=== PATIENT | female | born 1985 | race Two or more races ===

== ENCOUNTER 2024-07-21 00:06 | Observation (INO) | payer MEDICAID, SELFPAY ==
[2024-07-21 00:11] VITALS: BP 138/88; PULSE 99; RESP 16; TEMP 36.7; O2SAT 99
--- NOTE | 2024-07-21 00:38 | XR_ITS ---
Examination: Ultrasound soft tissue extremity right groin Technique: Multiple high resolution grayscale sonographic images soft tissue right groin Exam date and time: July 21, 2024 0154 hrs. Indications: Painful right groin and right labia noticed beginning one week ago Findings: Palpable lump in the right groin 3.5 x 1.0 x 3.2 cm with mild peripheral vascularity, most consistent with abscess Impression: Findings most consistent with abscess in the right groin 3.5 x 1.0 x 3.2 cm, clinical correlation advised, consider follow-up CT scan pelvis post intravenous contrast as clinically warranted
--- NOTE | 2024-07-21 00:43 | EDRME_ITS ---
Rapid Medical Screening Exam RME Arrival date/time: 07/21/24 00:06 39-year-old female presents emergency department complaining of swelling and edema to right groin and vaginal area that started about 5 days ago. Patient reports seeing primary care provider and was referred to [facility] with pending visit on the reports pain has been severe and cannot wait until then. Chief Complaint: Skin/Abscess/Foreign Body Time Seen by Provider: 07/21/24 00:19 Vital signs: Vital Signs Temperature 98.1 F 07/21/24 00:11 Pulse Rate 99 07/21/24 00:11 Respiratory Rate 16 07/21/24 00:11 Blood Pressure 138/88 H 07/21/24 00:11 Pulse Oximetry (%) 99 07/21/24 00:11 Oxygen Delivery Method Room Air 07/21/24 00:11 Vital signs reviewed by provider: Yes
--- NOTE | 2024-07-21 02:00 | XR_ITS ---
Examination: Ultrasound soft tissue extremity right labia Technique: Multiple high resolution grayscale sonographic images soft tissue right labia Exam date and time: August 10, 2024 at 0206 hrs. Indications: Painful lumps in the right groin beginning one week ago Findings: Soft tissue mass with mild peripheral vascularity in the right labia 3.3 x 1.5 x 1.2 cm impression: Soft tissue mass in the right labia 3.3 x 1.5 x 2.2 cm, most consistent with abscess, clinical correlation advised and follow-up accordingly
[2024-07-21 03:05] LABS: Collection Type, Urine Clean Catch
--- NOTE | 2024-07-21 03:15 | PRELIM_ITS ---
Right lower extremity ultrasound. July 21, 2024 at 0154 hoursClinical history: Right groin absces s.No prior study is available for comparison. Findings:There is heterogeneous fluid collection in th e right groin measuring 3.5 ((CC) x 1.0 x 3.2 (TRANS) cm with mild peripheral vascularity and surroun ding soft tissue swelling. Impression:Findings suggestive of abscess in the right groin region. Recom mend clinical correlation and followup. Report Electronically Signed By: Gianni Toro 07/21/2024 3:15 :21 AM [EST]
--- NOTE | 2024-07-21 03:17 | PRELIM_ITS ---
Right lower extremity ultrasound. July 21, 2024 at 0206 hoursClinical history: Right labia minora and majora rule out abscess.No prior study is available for comparison. Findings:There is heterogene ous fluid collection in the right inner labia measuring 3.3 x 1.5 x 2.2 cm with minimal peripheral va scularity. Surrounding soft tissue swelling is seen. Impression:Findings suggestive of abscess in the right inner labia. Recommend clinical correlation and followup. Report Electronically Signed By: Matt Toro 07/21/2024 3:16:50 AM [EST]
[2024-07-21 03:24] LABS: Bilirubin,Urine Negative (Negative); Blood,Urine 3+ (Negative); Clarity,Urine Clear (Clear/Hazy); Color,Urine Yellow (Lt Yel-Yel); Culture Indicated,Urine Yes; Glucose, Urine Negative (Negative); Ketones,Urine Negative (Negative); Leukocyte Esterase,Urine Positive (Negative); Nitrite,Urine Negative (Negative); PH,Urine 6.5 (5.0-7.0); Protein,Urine Trace (Neg - Trace); RBC,Urine 88 /hpf (0-3); Specific Gravity,Urine 1.025 (1.001-1.035); Squamous Epithelial Cell,Urine 4 /hpf (0-5); WBC,Urine 33 /hpf (0-5)
--- NOTE | 2024-07-21 04:04 | EDNOTE_ITS ---
<Statement entered by Lucille Bruce MD - 07/21/24 22:04> As co-signing physician, I was present and available for consult prn. I concur with the plan and care as documented by the midlevel provider. ED Skin Abcess FB-RME/HPI General Chief complaint: Skin/Abscess/Foreign Body Stated complaint: PRIVATE AREA PROBLEM Time Seen by Provider: 07/21/24 00:19 Arrival date/time: 07/21/24 00:06 39-year-old female presents emergency department complaining of swelling and edema to right groin and vaginal area that started about 5 days ago. Patient reports seeing primary care provider and was referred to [facility] with pending visit on the reports pain has been severe and cannot wait until then. Patient denies any fever, chills, dysuria, urinary retention, flank pain, nausea vomiting, or any other associated symptom. Mode of arrival: ambulatory Limitations: no limitations RME / HPI RME / HPI narrative: 07/21/24 00:06 39-year-old female presents emergency department complaining of swelling and edema to right groin and vaginal area that started about 5 days ago. Patient reports seeing primary care provider and was referred to [facility] with pending visit on the 20th reports pain has been severe and cannot wait until then. Related Data Previous Rx's ?Medication ?Instructions ?Recorded docusate sodium 100 mg capsule 100 mg PO BID #40 caps 03/25/24 (Colace) ibuprofen 600 mg tablet 600 mg PO Q8H PRN pain (scale 03/25/24 score 4-6) #15 tabs sulfamethoxazole 800 1 tab PO BID #14 tabs 03/25/24 mg-trimethoprim 160 mg tablet (Bactrim DS) tramadol 50 mg tablet 50 mg PO Q6H PRN pain #30 tabs 03/25/24 Allergies Allergy/AdvReac Type Severity Reaction Status Date / Time acetaminophen [From [place]] Allergy Mild Nausea Verified 03/25/24 06:47 hydrocodone [From [place]] Allergy Mild Nausea Verified 03/25/24 06:47 Review of Systems Review of Systems Systems Reviewed: All systems reviewed, normal except as documented Constitutional Constitutional: Reports system reviewed and no additional complaints, except as documented, Denies body ache(s), Denies chills and Denies fever(s) Eyes Eyes: Reports system reviewed and no additional complaints, except as documented and Denies change in vision ENT Ears, Nose, Mouth, and Throat: Reports system reviewed and no additional complaints, except as documented, Denies disequilibrium, Denies dizziness, Denies sore throat and Denies vertigo Cardiovascular Cardiovascular: Reports system reviewed and no additional complaints, except as documented, Denies chest pain and Denies dyspnea Respiratory Respiratory: Reports system reviewed and no additional complaints, except as documented, Denies chest congestion, Denies cough and Denies dyspnea Gastrointestinal Gastrointestinal: Reports system reviewed and no additional complaints, except as documented, Denies abdominal pain, Denies nausea and Denies vomiting Genitourinary Genitourinary: Reports other (Labia edema) Musculoskeletal Musculoskeletal: Reports system reviewed and no additional complaints, except as documented, Denies abnormal gait and Denies arthralgias Integumentary/Breasts Skin/Breast: Reports system reviewed and no additional complaints, except as documented, Denies erythema, Denies rash and Reports wounds (Edema right groin) Neurologic Neurologic: Reports system reviewed and no additional complaints, except as documented, Denies abnormal gait, Denies disequilibrium, Denies dizziness and Denies vertigo Past Medical History Past Medical History NEUROLOGIC: Negative Neurological Disorders or Seizures CARDIAC: Negative Cardiac Disorders, Congestive Heart Failure or Hypertension RESPIRATORY: Negative Chronic Obstructive Pulmonary Disease (COPD) GASTROINTESTINAL: Positive Gastrointestinal Disorders and Obesity; Negative Hepatitis GENITOURINARY: Negative Genitourinary Disorders or Renal Disease REPRODUCTIVE: Positive Previous Pregnancies MUSCULOSKELETAL: Negative Musculoskeletal Disorders ENT: Negative Glaucoma ENDOCRINE: Negative Endocrine Disorders, Diabetes Mellitus Type 1 or Diabetes Mellitus Type 2 HEMATOLOGIC: Negative Blood Disorders OTHER HISTORY: Positive Hospitalization; Negative Autoimmune Disease, Shingles, Blood Transfusions, Blood Transfusion Reaction, Anesthesia Reactions or Cancer Family History FAMILY HISTORY: Negative Family Psychiatric Problems, Family Respiratory Disorders, Family Cardiac Disorders, Family Gastrointestinal Problems, Family Cancer, Family Surgery or Family Anesthesia Reaction Social History SMOKING STATUS: Never smoker ED Exam General Limitations: Present no limitations General appearance: Present alert and in no apparent distress Head Head exam: Present atraumatic Eye Eye exam: Present normal appearance, PERRL and EOMI ENT ENT exam: Present normal exam, normal oropharynx and mucous membranes moist Neck Neck exam: Present normal inspection, full ROM and trachea midline Chest Chest inspection: Present normal inspection and symmetric chest wall rise Respiratory Respiratory exam: Present normal lung sounds bilaterally Cardiovascular Cardiovascular exam: Present regular rate, normal rhythm and normal heart sounds Abdominal Exam Abdominal exam: Present soft and normal bowel sounds Genitals Female CloseUp: 2 1. Labia minora edema +2 and draining after ultrasound purulent drainage 2. Small area of induration and erythema no obvious abscess or drainage at this time. Extremities Exam Extremities exam: Present normal inspection and full ROM Back Exam Back exam: Present normal inspection and full ROM Neurological Exam Neurological exam: Present alert, oriented X3 and CN II-XII intact Psychiatric Psychiatric exam: Present normal affect and normal mood Skin Skin exam: Present warm, dry, intact and normal color Course Quality Measures none Orders Category Date Time Status COVID-19 Screening Questionnaire NOW Care 07/21/24 05:09 Active Decision to Admit X1 Care 07/21/24 05:09 Active Insert IV NOW Care 07/21/24 05:09 Active US extremity nonvascular LMTD Stat Exams 07/21/24 00:38 Taken US extremity nonvascular LMTD Stat Exams 07/21/24 02:00 Taken A1C [Glycohemoglobin w (eAG)] Stat Lab 07/21/24 05:09 Ordered Blood Culture (Lab) Stat Lab 07/21/24 05:08 Ordered CBC Stat Lab 07/21/24 05:08 Ordered CMP [Comprehensive Metabolic Panel] Stat Lab 07/21/24 05:08 Ordered Chlamydia/GC/TV - PCR Stat Lab 07/21/24 03:00 Received Lactate (Lactic Acid) Stat Lab 07/21/24 05:08 Ordered PT [Prothrombin Time with INR] Stat Lab 07/21/24 05:09 Ordered PTT [Partial Thromboplastin Time] Stat Lab 07/21/24 05:09 Ordered Procalcitonin Stat Lab 07/21/24 05:08 Ordered Urinalysis, C/S if Indicated Stat Lab 07/21/24 03:00 Completed Urine Culture Stat Lab 07/21/24 03:00 Received Clindamycin 900Mg Ivpb [Cleocin/D5w Ivpb] 900 mg Med 07/21/24 05:09 Ordered Pre-Mixed [Pre-mixed Bag] 1 bag IV X1 HYDROcodone*/APAP 5/325 [B[place]der 5/325] Med 07/21/24 03:56 Discontinued 1 tab PO X1 ONE Ondansetron Odt [Zofran Odt] Med 07/21/24 03:57 Discontinued 4 mg PO X1 ONE cefTRIAXone [Rocephin] 1,000 mg Med 07/21/24 04:03 Discontinued Lidocaine 1% 20 ml [Xylocaine 1% 20 ML] 2.1 ml IM X1 Vital Signs Vital signs: Vital Signs Temperature 98.1 F 07/21/24 00:11 Pulse Rate 99 07/21/24 00:11 Respiratory Rate 16 07/21/24 00:11 Blood Pressure 138/88 H 07/21/24 00:11 Pulse Oximetry (%) 99 07/21/24 00:11 Oxygen Delivery Method Room Air 07/21/24 00:11 99% room air within normal limits Skin / Abscess / Foreign Body MDM Narrative MDM Narrative:: 39-year-old female with no significant past medical history presents emergency department complaining of swelling and edema to right groin and vaginal area that started about 5 days ago. Patient reports seeing primary care provider and was referred to [facility] with pending visit on the reports pain has been severe and cannot wait until then. Patient denies any fever, chills, dysuria, urinary retention, flank pain, nausea vomiting, or any other associated symptom. Patient is afebrile and not tachycardic and does not meet any SIRS criteria at this time. Patient appears nontoxic and is hemodynamically stable. On exam left labia minora appears to be slowly and edematous ordered ultrasound that did show abscess but abscess started draining after ultrasound from possible manipulation foul-smelling purulent drainage. Small localized area of erythema to right groin with abscess as reported on ultrasound. Dr. Levy consulted and reports will admit patient for IV antibiotics and incision and drainage. Patient stable at time of admission. Patient data External records reviewed:: [facility] previous records Clinical information provided by:: patient Social determinants that could affect healthcare access:: none Patient has the following chronic illnesses:: N/A How is presenting disease/condition affected by chronic disease/condition?: no chronic disease Evaluation data The following diagnostics were reviewed and interpreted by me:: lab results and radiology exam(s) Lab and/or radiology exams considered but not ordered:: Ordered Interpretation Summary: Interpreted by me Medications / Prescriptions Medications or Prescriptions considered but not ordered:: Ordered Medication administrations:: Medication Administration History Discontinued Medications Hydrocodone Bitart/Acetaminophen (Hydrocodone/Apap 5/325 Tablet) 1 tab PO X1 ONE Stop: 07/21/24 03:57 Last Admin: 07/21/24 04:06 Dose: 1 tab Documented By: CVL Ceftriaxone Sodium 1,000 mg/ (Lidocaine HCl 2.1 ml) 0 mg IM X1 ONE Stop: 07/21/24 04:04 Last Admin: 07/21/24 04:08 Dose: 1,000 mg Documented By: CVL Ondansetron HCl (Ondansetron Odt 4 Mg Tabrap) 4 mg PO X1 ONE; Protocol Stop: 07/21/24 03:58 Last Admin: 07/21/24 04:05 Dose: 4 mg Documented By: CVL Given Consultations Consultation(s) initiated? (list below): Yes Consultation #1 (Physician, Specialty, Details): Dr. Levy Diagnosis Skin/Abscess Differential Diagnosis: abscess of skin or subcutaneous tissue and cellulitis Most likely diagnosis given after review of the tests above:: Abscess of skin or subcutaneous tissue Admission Indicated Admission indicated?: indicated Admission Request Was there a request for admission?: Yes Admission Attestation Admission request attestation: Discussed case with [Dr. Levy] from Hospitalist service regarding admission. Discussed patients ED course, exam findings, labs, and radiology results. Dr. Levy [agrees] to accept the patient for admission. Disposition Plan Disposition Plan: Admit Discharge Plan Plan Patient Disposition: Admit Acute Care w/in Hospital Disposition Comment: Stable Prescriptions/Referrals Prescriptions/Med Rec: No Action docusate sodium [Colace] 100 mg capsule 100 mg PO BID Qty: 40 0RF ibuprofen 600 mg tablet 600 mg PO Q8H PRN (Reason: pain (scale score 4-6)) Qty: 15 0RF tramadol 50 mg tablet 50 mg PO Q6H PRN (Reason: pain) Qty: 30 0RF sulfamethoxazole-trimethoprim [Bactrim DS] 800-160 mg tablet 1 tab PO BID Qty: 14 0RF Referrals: No Primary/Family,Physician [Primary Care Provider] - In 1 week Problem List Clinical Impression: Abscess of skin or subcutaneous tissue Patient/Caregiver Discharge Instructions Print Language: Yemeni Stand Alone Forms: Alanna Award Info., Patient Portal Info Letter PA/DOUGHNUT ICER Supervising Physician PA/DOUGHNUT ICER Supervising Physician: Dr. Bruce
[2024-07-21] MEDS: ONDANSETRON ODT 4 MG TABRAP PO (04:05)
[2024-07-21] MEDS: HYDROcodone/APAP 5/325 TABLET 1 TAB PO (04:06)
[2024-07-21] MEDS: cefTRIAXone 1,000 MG, LIDOCAINE 1% 20 ML 2.1 ML IM (04:08)
[2024-07-21 05:34] VITALS: BP 130/63; PULSE 72; RESP 16; TEMP 36.9; O2SAT 98
[2024-07-21] MEDS: CLINDAMYCIN 900MG IVPB 900 MG in PRE-MIXED 1 BAG 50 MG IV ×3 (05:41→22:56)
--- NOTE | 2024-07-21 05:42 | PD.GYNHP ---
Documentation for date of: 07/21/24 [employer] WORKER - HPI History of Present Illness History of present illness: Ms. NAVARRETE is a 39 year old female who presents to the emergency room after having been seen in the office for multiple pustular and papular masses in her pelvic area. Patient was initially seen on 07/19/2024 by her PCP and she was treated with Bactrim which she states that she is compliant. Patient has multiple discernible masses including 1 in the clitoris, 1 in the thigh, as well as a large soft mass on the right inner thigh with overlying erythema tender to palpation, papules on both labia some with open wounds and a large soft fluctuating mass near the clitoris which is exquisitely tender to palpation. Her medical history includes prediabetes, iron deficiency anemia as well as hyperlipidemia. She has a BMI of 31.12. Review of Systems Review of Systems Systems Reviewed: All systems reviewed, normal except as documented Meds Home Medications and Allergies Allergies Allergy/AdvReac Type Severity Reaction Status Date / Time acetaminophen [From [place]] Allergy Mild Nausea Verified 07/21/24 05:42 hydrocodone [From [place]] Allergy Mild Nausea Verified 07/21/24 05:42 Exam - [employer] Vital Signs Temp Pulse Resp BP Pulse Ox O2 Del Method 98.5 F 72 16 130/63 98 Room Air 07/21/24 05:34 07/21/24 05:34 07/21/24 05:34 07/21/24 05:34 07/21/24 05:34 07/21/24 05:34 Constitutional Constitutional: no acute distress Routine HEENT Exam Head: Present normocephalic and atraumatic Eye: Present EOMI and PERRL ENT: Present mucous membranes moist Routine Neck Exam Neck: Present supple and trachea midline Routine Respiratory Exam Respiratory: Present chest non-tender, lungs clear, normal breath sounds and no resp distress Routine Cardiovascular Exam Cardiovascular: Present RRR Routine Abdominal Exam Abdominal: Present soft and normoactive bowel sounds Routine Exam Comments: large soft mass on R inner thigh with overlying erythema, TTPseveral small white papules on bilat labia, some with open wounds, TTPlarge soft moveable mass near clitoris, TTP Routine Extremities Exam Extremities: Present full ROM Routine Skin Exam Skin: Present intact and dry Routine Neurological Exam Neurological: Present alert, oriented X3 and CN II-XII intact Routine Psychiatric Exam Psychiatric: Present normal affect and normal thought process [employer]ER - Results Labs Labs: Urine 07/21/24 Range/Units 03:00 Urine Color Yellow (Lt Yel-Yel) Urine Clarity Clear (Clear/Hazy) Urine pH 6.5 (5.0-7.0) Ur Specific [place] 1.025 (1.001-1.035) Urine Protein Trace (Neg - Trace) Urine Glucose (UA) Negative (Negative) Assessment and Plan Assessment and plan (1) Pelvic cellulitis in female: Status: Acute Assessment and plan: Place in observation status for IV antibiotics Reassessment and surgical intervention if needed Pain management with p.o. pain medications Follow-up as needed Quality Measures Quality Measures none
[2024-07-21 05:52] LABS: Lactate (Lactic Acid) 1.3 mMol/L (0.4-2.0)
[2024-07-21 06:13] LABS: Partial Thromboplastin Time 31.6 Seconds (22.0-36.0); Prothrombin Time 11.1 Seconds (9.0-12.2)
[2024-07-21 06:18] LABS: Basophils % (Auto) 0 % (0-2.5); Eosinophils # (Auto) 0.2 Thou/mm3 (0.0-0.5); Eosinophils % (Auto) 2 % (0-10); Hematocrit 37.5 % (36.0-46.0); Hemoglobin 12.7 g/dL (12.0-16.0); Immature Granulocytes % (Auto) 0 % (0-0); Immature Granulocytes Auto 0.04 Thou/mm3 (0.00-0.00); Lymphocytes # (Auto) 2.4 Thou/mm3 (1.0-4.8); Lymphocytes % (Auto) 21 % (10-50); Mean Corpuscular HGB Conc 33.9 g/dl (31.0-37.0); Mean Corpuscular Hemoglobin 29.5 pg (25.0-35.0); Mean Corpuscular Volume 87 fL (80-100); Monocytes # (Auto) 0.7 Thou/mm3 (0.0-0.8); Monocytes % (Auto) 6 % (0-12); Neutrophils # (Auto) 8.3 Thou/mm3 (1.8-7.7); Neutrophils % (Auto) 71 % (37-80); Nucleated Red Blood Cell % 0 /100 WBC (0); Platelet Count 375 Thou/mm3 (140-440); RDW Standard Deviation 38.8 fL (36.4-46.3); Red Blood Count 4.31 Miln/mm3 (4.00-5.20); White Blood Count 11.7 Thou/mm3 (3.6-11.0)
[2024-07-21 06:41] LABS: Alanine Aminotransferase 12 U/L (10-49); Albumin, Serum 4.5 gm/dL (3.5-5.0); Albumin/Globulin Ratio 1.5 (1.2-2.2); Alkaline Phosphatase 90 U/L (46-116); Anion Gap 9 (7-16); Aspartate Amino Transferase 17 U/L (0-34); BUN/Creatinine Ratio 11 Ratio (12-20); Bilirubin,Total 0.8 mg/dL (0.3-1.2); Blood Urea Nitrogen 9 mg/dL (9-23); Calcium 9.5 mg/dL (8.3-10.6); Calcium (Corrected) 9.5 mg/dL (8.5-10.1); Carbon Dioxide 23.7 mMol/L (20.0-31.0); Chloride 102 mMol/L (98-107); Creatinine (Component) 0.8 mg/dL (0.6-1.3); Globulin 3.1 gm/dL (2.3-3.5); Glucose 103 mg/dL (74-106); Osmolality,Calculated 268 (275-295); Potassium 4.1 mMol/L (3.4-5.1); Procalcitonin < 0.04 ng/ml (0.0-0.49); Sodium 135 mMol/L (136-145); Total Protein 7.6 gm/dL (5.7-8.2); eGFR > 60 See Note
[2024-07-21 07:00] LABS: Glucose Estimated Average 117 mg/dL (80-131); Hemoglobin A1C 5.7 % Hgb (4.8-6.0)
[2024-07-21] MEDS: PANTOPRAZOLE 40 MG TABLET PO (08:31)
[2024-07-21 08:49] LABS: Chlamydia trachomatis PCR Negative (Not Detect); Neisseria Gonorrhoeae DNA PCR Negative (Not Detect); Trichomonas Negative (Negative)
[2024-07-21] MEDS: metroNIDAZOLE/NS 500 MG IVPB 500 MG/100 ML BAG 200 MG IV ×3 (10:32→22:19)
[2024-07-21 14:12] VITALS: BP 113/72; PULSE 73; RESP 19; TEMP 36.7; O2SAT 99
--- NOTE | 2024-07-21 14:17 | PC.CC ---
Pt Slime Hodges is a 39 yr old female admitted to hospitalist services for pelvic cellulitis. CONTACT LENS POLISHER CC met with pt at bedside to complete initial assessment. At time of encounter pts Donta Hodges [phone] is at bedside. Pt expressed verbal consent for [facility] [employer] CC to proceed with assessment at this time. Pt is noted to be alert and oriented to person, place and situation. Pt expressed understanding admission orders at this time. Pt able to confirm demographic information at this time. Pt is from [address] [place] Where pt reports living with her spouse. Pt identifies her as surrogate DM. At baseline pt reports being independent with ambulation and with her ADLs. Pt reports that she does not require supplemental O2 in the home. Pt is not diabetic and is not on dialysis. Pt is followed by [facility] [address] for primary care. At time of D/c pt will return home, with her providing transport. Information on Advance Directive not discussed at this time.
[2024-07-21 16:00] VITALS: BP 96/60; PULSE 76; RESP 18; TEMP 36.7; O2SAT 97
[2024-07-21 19:51] VITALS: BP 104/61; PULSE 85; RESP 18; TEMP 38; O2SAT 98
--- NOTE | 2024-07-21 21:03 | PC.NURSE ---
PT resting quietly. Report called to Daly MADISON
[2024-07-21 21:28] VITALS: BMI 28.8
[2024-07-21 22:00] VITALS: BP 115/74; PULSE 83; RESP 18; TEMP 37.1; O2SAT 96
[2024-07-22] VITALS: BP 126/76; PULSE 86; RESP 19; TEMP 36.6; O2SAT 97
[2024-07-22 04:00] VITALS: BP 118/74; PULSE 87; RESP 16; TEMP 36.3; O2SAT 94
[2024-07-22] MEDS: metroNIDAZOLE/NS 500 MG IVPB 500 MG/100 ML BAG 200 MG IV (05:27)
[2024-07-22 05:46] LABS: Basophils % (Auto) 0 % (0-2.5); Eosinophils # (Auto) 0.2 Thou/mm3 (0.0-0.5); Eosinophils % (Auto) 2 % (0-10); Hematocrit 36.6 % (36.0-46.0); Hemoglobin 12.3 g/dL (12.0-16.0); Immature Granulocytes % (Auto) 0 % (0-0); Immature Granulocytes Auto 0.04 Thou/mm3 (0.00-0.00); Lymphocytes # (Auto) 2.5 Thou/mm3 (1.0-4.8); Lymphocytes % (Auto) 23 % (10-50); Mean Corpuscular HGB Conc 33.6 g/dl (31.0-37.0); Mean Corpuscular Hemoglobin 29.1 pg (25.0-35.0); Mean Corpuscular Volume 87 fL (80-100); Monocytes # (Auto) 0.9 Thou/mm3 (0.0-0.8); Monocytes % (Auto) 8 % (0-12); Neutrophils # (Auto) 7.1 Thou/mm3 (1.8-7.7); Neutrophils % (Auto) 66 % (37-80); Nucleated Red Blood Cell % 0 /100 WBC (0); Platelet Count 358 Thou/mm3 (140-440); RDW Standard Deviation 38.7 fL (36.4-46.3); Red Blood Count 4.22 Miln/mm3 (4.00-5.20); White Blood Count 10.7 Thou/mm3 (3.6-11.0)
[2024-07-22] MEDS: CLINDAMYCIN 900MG IVPB 900 MG in PRE-MIXED 1 BAG 50 MG IV (06:10)
[2024-07-22 06:29] LABS: Alanine Aminotransferase 13 U/L (10-49); Albumin, Serum 4.4 gm/dL (3.5-5.0); Albumin/Globulin Ratio 1.5 (1.2-2.2); Alkaline Phosphatase 85 U/L (46-116); Anion Gap 7 (7-16); Aspartate Amino Transferase 15 U/L (0-34); BUN/Creatinine Ratio 12 Ratio (12-20); Blood Urea Nitrogen 11 mg/dL (9-23); Calcium 9.5 mg/dL (8.3-10.6); Calcium (Corrected) 9.5 mg/dL (8.5-10.1); Carbon Dioxide 26.3 mMol/L (20.0-31.0); Chloride 102 mMol/L (98-107); Creatinine (Component) 0.9 mg/dL (0.6-1.3); Estimated Creatinine Clearance 79.1 mL/min (>60); Glucose 120 mg/dL (74-106); Osmolality,Calculated 270 (275-295); Potassium 4.1 mMol/L (3.4-5.1); Procalcitonin < 0.04 ng/ml (0.0-0.49); Sodium 135 mMol/L (136-145); Total Protein 7.4 gm/dL (5.7-8.2); eGFR > 60 See Note
[2024-07-22 07:21] VITALS: BP 115/75; PULSE 82; RESP 17; TEMP 36.6; O2SAT 97
[2024-07-22] MEDS: PANTOPRAZOLE 40 MG TABLET PO (08:23)
--- NOTE | 2024-07-22 08:29 | ESPR_ITS ---
Documentation for date of: 07/22/24 COMPLIANCE REPRESENTATIVE DEALER Subjective Subjective Interval history: Patient to bedside. Afebrile for more than 24 hours tolerating p.o. ambulating voiding passing flatus states minimal pain in vulvar area Exam Vital Signs Temp Pulse Resp BP Pulse Ox O2 Del Method 97.9 F 82 17 115/75 97 Room Air 07/22/24 07:21 07/22/24 07:21 07/22/24 07:21 07/22/24 07:21 07/22/24 07:21 07/22/24 07:21 Routine Abdominal Exam Comments: Soft, appropriately tender Routine Exam Comments: 2 cm erythema on right thigh, soft, nontender Urinary Catheter Management Cath placed during this visit: no COMPLIANCE REPRESENTATIVE DEALER - PN: Obj Data Labs 07/22/24 05:02 07/22/24 05:02 Labs: Laboratory Results - last 24 hr 07/21/24 07/22/24 03:00 05:02 WBC 10.7 RBC 4.22 Hgb 12.3 Hct 36.6 MCV 87 MCH 29.1 MCHC 33.6 RDW Std Deviation 38.7 Plt Count 358 Neut % (Auto) 66 Lymph % (Auto) 23 [place] % (Auto) 8 Eos % (Auto) 2 Baso % (Auto) 0 Neut # (Auto) 7.1 Lymph # (Auto) 2.5 Carson # (Auto) 0.9 H Eos # (Auto) 0.2 Baso # (Auto) 0.0 Immature Gran # (Auto) 0.04 H Absolute Nucleated RBC 0.00 Immature Gran % 0 Nucleated RBC % 0 Sodium 135 L Potassium 4.1 Chloride 102 Carbon Dioxide 26.3 Anion Gap 7 BUN 11 Creatinine 0.9 Estim Creat Clear Calc 79.1 eGFR > 60 BUN/Creatinine Ratio 12 Glucose 120 H Calculated Osmolality 270 L Calcium 9.5 Corrected Calcium 9.5 Total Bilirubin 1.0 AST 15 ALT 13 Alkaline Phosphatase 85 Total Protein 7.4 Albumin 4.4 Globulin 3.0 Albumin/Globulin Ratio 1.5 Procalcitonin < 0.04 Chlam trachomat DNA PCR Negative N.gonorrhoeae DNA (PCR) Negative Trichomonas DNA Probe Negative Impressions Impression: 39-year-old with suspected hidradenitis suppurativa in the pelvic and axillary area COMPLIANCE REPRESENTATIVE DEALER - A/P Assessment and plan (1) Pelvic cellulitis in female: Status: Acute Postoperative Postoperative plan: discharge Time Spent With Patient Time: Total time spent is greater than 50% in coordination of care (as documented) at patient's floor/unit and/or counseling patient: Time with patient: 25 - 35 minutes
--- NOTE | 2024-07-22 08:31 | ESDS_ITS ---
Planned Discharge Date 07/22/24 DS: Providers Provider Date of admission: 07/21/24 05:26 Primary care physician: Physician No Primary/Family Admitting Provider: Chidi Levy MD Attending Provider on Admission: Henran Yeung MD Attending Provider on DC: Hernan Yeung MD Discharging Provider: Hernan Yeung MD DS: Diagnosis Problem List Completed Was Problem List Reviewed/Reconciled?: Yes Hospital Course Hospital Course Hospital course: Patient to bedside. Afebrile for more than 24 hours tolerating p.o. ambulating voiding passing flatus states minimal pain in vulvar area Time Spent with Patient Time attestation: Total time spent providing and/or coordinating discharge services: Exam - HELP DESK ENGINEER Vital Signs Temp Pulse Resp BP Pulse Ox O2 Del Method 97.9 F 82 17 115/75 97 Room Air 07/22/24 07:21 07/22/24 07:21 07/22/24 07:21 07/22/24 07:21 07/22/24 07:21 07/22/24 07:21 Discharge Plan Plan Patient Disposition: HOME (Self Care) Disposition Comment: Stable Prescriptions/Referrals Prescriptions/Med Rec: New doxycycline hyclate 100 mg capsule 100 mg PO BID 10 Days Qty: 20 0RF No Action docusate sodium [Colace] 100 mg capsule 100 mg PO BID Qty: 40 0RF ibuprofen 600 mg tablet 600 mg PO Q8H PRN (Reason: pain (scale score 4-6)) Qty: 15 0RF tramadol 50 mg tablet 50 mg PO Q6H PRN (Reason: pain) Qty: 30 0RF sulfamethoxazole-trimethoprim [Bactrim DS] 800-160 mg tablet 1 tab PO BID Qty: 14 0RF Referrals: Hernan Yeung MD [Physician] - (2 weeks) No Primary/Family,Physician [Primary Care Provider] - Patient/Caregiver Discharge Instructions Education Materials: Discharge Instructions for Cellulitis Print Language: Uzbek Stand Alone Forms: Alanna Award Info., Patient Portal Info Letter, Work/Release Restrictions Discharge Order Discharge Orders: Discharge (Routine); Ordered 07/22/24 Ordered By: Hernan Yeung
== END 2024-07-22 10:00 | disposition home or self-care (01) ==
LOC: SERX 05:07 → SERHOLD 05:47 → S3NX 21:30
PROVIDERS: Admitting Provider Obstetrics & Gynecology; Emergency Provider Emergency Medicine; Visit Provider Obstetrics & Gynecology
DX: N73.2 Unspecified parametritis and pelvic cellulitis (principal); I11.0 Hypertensive heart disease with heart failure; E78.5 Hyperlipidemia, unspecified; E66.9 Obesity, unspecified
CPT/HCPCS: 36415; 76882; 80053; 81001; 83036; 83605; 84145; 85025; 85610; 85730; 87040; 87077; 87086; 87186; 87491; 87591; 87661; 96365; 96366; 96372; 99285; G0378; J0696; J3490; Q0162; S0077; A9270; J0736; J1836